=== PATIENT | female | born 1970 | race Caucasian/White ===

== ENCOUNTER → 2022-01-12 | Outpatient (CLI) | payer BC ==
[~2022-01-12] MED LIST: BACTRIM DS TAB1 EACH PO; BACTROBAN CREAM15 GM TOP; CELEBREX200 MG PO; COLACE 100MG C100 MG PO; COUMADIN2 MG PO; COZAAR100 MG PO; CRESTOR10 MG PO; DICLOFENAC SODI75 MG PO; FERROUS SULFAT325 MG PO; FLONASE 0.05% N16 GM INH; FOLIC ACID1 MG PO; HUMIRA40 MG/0.8 SQ; LEVAQUIN500 MG PO; LIORESAL TAB 1010 MG PO; LORATADINE10 MG PO; LOVENOX SYR100 MG/ML SQ; MELATONIN5 M2 PO; METHOTREXATE2.5 MG PO; NEURONTIN 300300 MG PO; NORVASC 5 MG TAB5 MG PO; NORVASC10 MG PO; PERCOCET 10-321 EACH PO; PREDNISONE10 MG PO; SERTRALINE HCL50 MG PO
== END ==
LOC: KOH-I 08:44
DX: J32.9 Chronic sinusitis, unspecified (principal)
CPT/HCPCS: 70486